=== PATIENT | female | born 1990 | race Two or more races ===

== ENCOUNTER 2024-11-27 23:49 | Emergency (ER) | payer OTHER ==
[~2024-11-27] VITALS: Ht 160 cm; Wt 85.3 kg
[2024-11-28 02:15] VITALS: BP 121/86; PULSE 80; RESP 18; TEMP 98.8; O2SAT 98
[2024-11-28] MEDS ORDERED: ACET500T58 PO (02:21)
[2024-11-28] MEDS ORDERED: AMOX875T4 PO (02:21)
--- NOTE | 2024-11-28 02:22 | ED.PDOC ---
HPI Comments 34-year-old female presents to ER with complaints of laceration to right hand x1 day. Patient reports that her husky dog who is fully up to date on vaccines bit her on her right hand at 10:00 p.m. prior to arrival to ER and sustained laceration to right hand at that time. She reports 7/10 pain to right hand without radiation. Denies use of medications for current symptoms and states she is up-to-date on her tetanus shot. Denies numbness/tingling, right wrist pain or any further symptoms/complaints Chief Complaint: Animal Bite Time Seen by MD: 00:09 Primary Care Provider: UNKNOWN Reviewed Notes: Nurses Notes, Medications, Allergies Allergies: Coded Allergies: No Known Drug Allergy (Verified Allergy, Unknown, 11/28/24) Home Meds Active Scripts Amoxicillin & Pot Clavulanate (Amoxicillin/Potassium Cla) 875 Mg Tab, 1 TAB PO BID for 7 Days, #14 TAB 0 Refills Prov:HUSAM STALEY 11/28/24 Acetaminophen (Acetaminophen) 500 Mg Tab, 500 MG PO Q4HPRN, #30 TAB 0 Refills Prov:HUSAM STALEY 11/28/24 Information Source: Patient Mode of Arrival: Ambulatory Complexity: Simple Laceration Length (cm): 2 Skin Type: Linear Past Medical History PAST MEDICAL HISTORY: Denies Surgical History: Denies all surgeries [employer] History: Ovarian Cysts Family History Family History: Unknown Social History Smoker: Non-Smoker Alcohol: Denies ETOH Use Drugs: Denies Drug Use Lives In: Home Constitutional: denies: chills, diaphoresis, fatigue, fever, malaise, sweats, weakness, others EENTM: denies: blurred vision, double vision, ear bleeding, ear discharge, ear drainage, ear pain, ear ringing, eye pain, eye redness, hearing loss, mouth pain, mouth swelling, nasal discharge, nose bleeding, nose congestion, nose pain, photophobia, tearing, throat pain, throat swelling, voice changes, others Respiratory: denies: cough, hemoptysis, orthopnea, SOB at rest, shortness of breath, SOB with excertion, stridor, wheezing, others Cardiovascular: denies: chest pain, dizzy spells, diaphoresis, Dyspnea on exertion, edema, irregular heart beat, left arm pain, lightheadedness, palpitations, PND, syncope, others Gastrointestinal: denies: abdomen distended, abdominal pain, blood streaked bowels, constipated, diarrhea, dysphagia, difficulty swallowing, hematemesis, melena, nausea, poor appetite, poor fluid intake, rectal bleeding, rectal pain, vomiting, others Genitourinary: denies: abnormal vagina bleeding, burning, dyspareunia, dysuria, flank pain, frequency, hematuria, incontinence, pain, , vagina discharge, urgency, others Neurological: denies: dizziness, fainting, headache, left sided numbness, left sided weakness, numbness, paresthesia, pre-existing deficit, right sided numbness, right sided weakness, seizure, speech problems, tingling, tremors, weakness, others Musculoskeletal: reports: others ( STATED IN HPI) Integumetry: reports: others ( STATED IN HPI) Allergic/Immunocompromised: denies: Difficulty Healing, Frequent Infections, Hives, Itching, others Hematologic/Lymphatic: denies: anemia, blood clots, easy bleeding, easy bruising, swollen glands, others Endocrine: denies: excessive hunger, excessive sweating, excessive thirst, excessive urination, flushing, intolerance to cold, intolerance to heat, unexplained weight gain, unexplained weight loss, others Psychiatric: denies: anxiety, bipolar disorder, depression, hopeless, panic disorder, schizophrenia, sleepless, suicidal, others Physical Exam General Appearance: No Apparent Distress, Obese HEENT: PERRL/EOMI Neck: Full Range of Motion, Non-Tender, Normal Respiratory: Chest Non-Tender, Lungs Clear, No Accessory Muscle Use, No Respiratory Distress, Normal Breath Sounds Cardiovascular: No Murmur, No Gallop, Regular Rate/Rhythm Breast Exam: Deferred Gastrointestinal: NOT DONE Genitalia: Deferred Pelvic: Deferred Rectal: Deferred Extremities: Normal capillary refill, Normal range of motion Neurologic: Alert, preparer making department II-XII nml as Tested, No Motor Deficits, Normal Affect, Normal Mood, No Sensory Deficits Cerebellar Function: Normal Reflexes: Normal Skin: Dry, Warm, Other (2 CM LACERATION NOTED TO REGION OF RIGHT 5TH METACARPAL. SLIGHT TTP/SWELLING/ERYTHEMA AND MINIMAL ECCHYMOSIS LOCALIZED TO WOUND EDGES. NO FOREIGN BODY NOTED. PATIENT ABLE TO FULLY MOVE ALL FINGERS RIGHT HAND. NO TTP TO RIGHT WRIST NOTED. PULSES INTACT) Peripheral Pulses: 2+ Radial (R), 2+ Radial (L), 2+ Brachial (R), 2+ Brachial (L) Lymphatic: No Adenopathy Was a procedure done? Was a procedure done?: Yes Sedation Sedation?: No Laceration Repair : Location RIGHT HAND Length 2 CM Anesthetic: Lidocaine (1%), Without epi Laceration Repair Prep: Saline, Betadine, by Irrigation (HEAVILY IRRIGATED WITHOUT ANY SIGNS OF FOREIGN BODY) Laceration Repair Wound Comple: epidermis/dermis repair Laceration Repair: Number of sutures (2), Size (2 PLACED- LOOSLEY APPROXIMA VISH- PATIENT TOLERATED WELL WITHOUT ANY COMPLICATION), Nylon (4-0), Simple, Non- adherent gauze Informed consent obtained: Yes Risks, benefits, and alternati: Yes Differential diagnosis Generic Laceration: Fracture, Retained Foriegn Body, Neurovascular Injury X-Ray, Labs, Meds, VS Vital Signs Date Time Temp Pulse Resp B/P (MAP) Pulse Ox O2 Delivery O2 Flow Rate FiO2 11/28/24 02:15 98.8 83 18 121/86 (98) 97 98.8 11/28/24 02:15 80 18 98 Room Air* 0 21 11/28/24 00:01 98.5 83 18 121/86 (98) 97 PATIENT: HOUSTON JONESCCT: [id number]: [id number] : 1990 LOC: ER ROOM / BED: / AGE / SEX: 34 / F ADM STATUS: REG ER SERVICE 9 ORDERING PHYSICIAN: HUSAM STALEY PROCEDURE(s): RHAN - R HAND 3 VIEW XRAY REASON: right hand pain ORDER NUMBER(s): [id number], ACCESSION NUMBER(s): [id number] Examination: RHAN Clinical Indication: right hand pain Comparison: None. Technique: Three views of the right hand were evaluated. Findings: There is no evidence of acute fracture, dislocation or osseous lesion. The carpal bones are well aligned. The joint spaces are well preserved. The soft tissues are unremarkable. Impression: No acute fracture or dislocation by plain radiography. Advised further evaluation with CT/MRI right hand without contrast, if clinically indicated. Electronically Signed 11/28/2024 03:59 Dhaval Jaffe ATED BY: EVI REA MD DICTATED DATE/TIME: 11/28/24358 SIGNED BY: EVI REA MD SIGNED DATE/TIME: 11/28/24358 CC: WAIVER SIGNED RIGHT HAND X-RAY REVIEWED WOUND CLEANING PERFORMED AT BEDSIDE WOUND CARE/CLEANING DISCUSSED AND ADVISED ADVISED TO FOLLOW UP IN TWO DAYS FOR WOUND CHECK ADVISED TO FOLLOW UP IN 10-14 DAYS FOR REMOVAL OF SUTURES ADVISED TO FOLLOW UP WITH PCP IN 1-2 DAYS PATIENT VERBALIZED UNDERSTANDING AND AGREEABLE WITH CURRENT PLAN OF CARE ADVISED TO RETURN TO ER IMMEDIATELY IF SYMPTOMS WORSEN Images Reviewed?: Images reviewed and evaluated by me Time of 1ST Reevaluation: 02:12 Reevaluation 1ST: N/A Patient Education/Counseling: Diagnosis, Treatment, Prognosis, Need For Follow Up Family Education/Counseling: Diagnosis, Treatment, Prognosis, Need For Follow Up Departure 1 Departure Time of Disposition: 03:52 Impression: Primary Impression: Dog bite of right hand Qualified Codes: S61.451A - Open bite of right hand, initial encounter; W54.0XXA - Bitten by dog, initial encounter Additional Impression: Laceration of hand, right Qualified Codes: S61.411A - Laceration without foreign body of right hand, initial encounter Disposition: HOME / SELF CARE / HOMELESS Condition: Stable e-Prescriptions Amoxicillin & Pot Clavulanate (Amoxicillin/Potassium Cla) 875 Mg Tab 1 TAB PO BID for 7 Days, #14 TAB 0 Refills Prov: HUSAM STALEY 11/28/24 Acetaminophen (Acetaminophen) 500 Mg Tab 500 MG PO Q4HPRN, #30 TAB 0 Refills Prov: HUSAM STALEY 11/28/24 Discharged With: Significant Other Critical Care Note Critical Care Time?: No Stability Stability form required: No Heart Score Heart Score: Heart Score Response (Comments) Value History N/A 0 EKG N/A 0 Age N/A 0 Risk Factors N/A 0 Troponin N/A 0 Total 0 HUSAM STALEY Nov 28, 2024 02:22
[2024-11-28] MEDS: LIDOCAINE 1% HCL (LOCAL ANESTH.) INJ 20ML MDV ID ONE (03:30)
--- NOTE | 2024-11-28 04:00 | DVH ---
Examination: RHAN Clinical Indication: right hand pain Comparison: None. Technique: Three views of the right hand were evaluated. Findings: There is no evidence of acute fracture, dislocation or osseous lesion. The carpal bones are well aligned. The joint spaces are well preserved. The soft tissues are unremarkable. Impression: No acute fracture or dislocation by plain radiography. Advised further evaluation with CT/MRI right hand without contrast, if clinically indicated. Electronically Signed 11/28/2024 03:59 Dhaval Jaffe
== END 2024-11-28 04:10 | disposition home or self-care (01) ==
LOC: ER 23:49
DX: S61.411A Laceration without foreign body of right hand, initial encounter (principal); Z79.899 Other long term (current) drug therapy; W54.0XXA Bitten by dog, initial encounter; Y93.89 Activity, other specified; Y92.89 Other specified places as the place of occurrence of the external cause; Y99.8 Other external cause status
CPT/HCPCS: 12001; 73130; 99283; J2003